=== PATIENT | female | born 1990 | race Two or more races ===

== ENCOUNTER → 2021-11-11 | Outpatient (CLI) | payer OTHER ==
--- NOTE | 2021-11-11 14:08 | KCIC ---
Ultrasound pelvis complete and transvaginal ultrasound pelvis HISTORY: Pelvic pain for 2 weeks. Sonographic examination pelvis and former transabdominal and endovaginal technique. Multiple static i mages were obtained. Ultrasound pelvis complete transabdominal: The uterus appears normal measures 9.3 x 7.1 x 4 cm. The junctional zone is fairly discrete. The ovar ies appear normal with normal blood flow. Transvaginal ultrasound pelvis: The endometrium of the uterus appears normal and measures 6.2 mm in thickness. The ovaries appear nor mal with normal blood flow. The right ovary measures 4.3 x 3.9 x 2.0 cm. The left ovary measures 3.5 x 3.0 x 2.3 cm. There is a small amount of simple free fluid in the cul-de-sac, likely physiologic. IMPRESSION: Negative examination. Electronically signed by: Jim Paulino III, MD (11/11/2021 2:06 PM) [facility]
== END ==
LOC: KCIC US 10:56
PROVIDERS: ATTEND Obstetrics & Gynecology
DX: R10.2 Pelvic and perineal pain (principal)
CPT/HCPCS: 76830; 76856